=== PATIENT | female | born 1975 | race Caucasian/White ===

== ENCOUNTER 2024-12-22 13:55 | Outpatient (CLI) | payer OTHER, SELFPAY ==
--- NOTE | ~2024-12-22 | NM_ITS ---
EXAMINATION: NM thyroid scan w uptake DATE: 12/23/2024 14:47 INDICATION: Hyperthyroidism COMPARISON: None. TECHNIQUE: 355 microcuries [id number] was administered orally in capsule form. Scintigraphic images of the thyroid gland were obtained at 24 hours. Thyroid uptake was calculated by the technologist. FINDINGS: The thyroid uptake is 26.8% (normal 10-30%), with the right lobe measuring 13.8% uptake and the left 12.7%. There is no focal area of decreased or increased activity to suggest hypofunctioning or hyperfunctioning nodule. IMPRESSION: 1. Normal thyroid scintigraphy and 24-hour iodine uptake. Reviewed, dictated and finalized at location A.
--- OUTSIDE RECORDS SUMMARY | 2024-12-22 18:02 | XMS_ITS | Encounter Summary ---
Author Organization [facility] Address [address] [place] [id number] Care Team Providers Care Grain Unloader Machine Name Role Phone Anneliese Villa Primary Care Provider [phone] Georgette Garrido [facility] Primary Care Provider + Encounter Details Date Type Department Care Team (Late st Contact Info) Description 12/25/2022 [email or web address] Message [facility] Family [facility] Internal Medicine [address] [phone] [facility], [facility] Provider Screening Social History Tobacco Use Types Packs/Day Years Used Date Smoking Tobacco: Never Smokeless Tobacco: Never Alcohol Use Standard Drinks/Week Comments Yes 0 (1 standard drink = 0.6 oz pur e alcohol) 2 x a year PHQ-2 Answer Date Recorded PHQ-2 Score - If the patient scores above 3, please move on to questions 3-9 0 11/22/2019 Comments No Sex and Gender Information Value Date Recorded Sex Assigned at Female 12/02/2024 6:47 AM CDT Legal Sex Female 8:28 AM CDT Gender Identity Not on file Sexual Orientation Not on file 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 Not on file Not on file Not on file documented as of this encounter Plan of Treatment Not on file documented as of this encounter Visit Diagnoses Not on filedocumented in this encounter Additional Health Concerns Assessment Noted Time PHQ-9 Depression Total Score: 2 11/22/19 20 8:36 AM CDT documented as of this encounter Care Teams Grain Unloader Machine Relationship Specialty Start Date End Date Anneliese Villa APNP [address] [place] [id number] PCP - General NURSE PRACTITIONER 11/22/19 02/13/23 Georgette Garrido, [employer]- [address] [phone] PCP - General NURSE PRACTITIONER 02/14/23 documented as of this encounter
--- OUTSIDE RECORDS SUMMARY | 2024-12-22 18:02 | XMS_ITS | Data Portability ---
Author Organization [facility] [employer], Main Office Address [address] [place] [address] Assessment No assessment recorded. Plan of Treatment Reminders Order Date Submit Date Provider Last Modified By Organization Details Last Modified Time Details Appointments None recorded. Lab lipid panel, serum [address] (Lab), [address] [place], [address], 3 08:07:55 TSH, serum or plasma [address] (Lab), [address] [place], [address], 3 08:07:54 CBC w/ auto diff [address] (Lab), [address] [place], [address], 3 08:07:54 noninvasive colorectal cancer DNA + occult blood screening, QL, stool 2022 023 [place] [address] [employer], [address], [place], [address], 3 08:07:55 CMP, serum or plasma [address] (Lab), [address] [place], [address], 3 08:07:54 glycohemogl obin, total, blood 2022 023 [facility] (Lab), [address] [place], [address], 08:07:54 Referral None recorded. Procedures None recorded. Surgeries None recorded. Imaging None recorded. Medication Orders sertraline 50 mg tablet 2022 [place] [facility], [address], [place], [address], 08:28:19 sertraline 50 mg tablet 2022 [facility], [address] [facility], [place], [address], 08:42:32 Patient TargetsNo targets recorded. Patient Instructions Encounter Date Encounter Id Patient Instructions Last Modified By Organization Details Last Modified Time 12/31/2022 [id number] fu in 1 year for wellness. Fu in 6 weeks for med check Not available 12/31/2022 08:42:45 02/14/2023 [id number] Fu in 3 mo. 02/14/23 pt aware of [place] departure. Not available 02/14/2023 08:36:29 Reason for Referral None Reported. Results Created Date Observation Date Name Description Value Unit Range Abnormal Flag Note LastModifiedBy Organization Detail LastModifiedTime 12/31/1912/31/2023 COLOG UARD cologuard result Cancel led - Order d not applic able Not Available [employer] [address], [place], [address], 12/31/2023 07:58:45 01/30/2001/29/2023 COLOG UARD cologuard result reportable No Result Obtain ed n/a There was insuf ficie nt stool DNA detec mei to produ ce a valid Colog uard resul t. The patie nt will be conta cted to initi ate a new sampl e colle ction . Not Available [employer] [address], [place], [address], 02/09/2023 21:22:56 02/11/2002/12/2023 LIPID PANEL , STAND AMARILIS cholesterol, total 131 mg/dL <200 normal Not Available [facility] [address] [address] [place], [address], 02/12/2023 12:17:58 02/11/2002/12/2023 LIPID PANEL , STAND AMARILIS HDL cholesterol 48 mg/dL > or = 50 low Not Available [facility] [address] [address] [place], [address], 02/12/2023 12:17:58 02/11/2002/12/2023 LIPID PANEL , STAND AMARILIS triglyceride s 54 mg/dL <150 normal Not Available [facility] [address] [address] [place], [address], 02/12/2023 12:17:58 02/11/2002/12/2023 LIPID PANEL , STAND AMARILIS LDL-choleste rol 70 mg/dL _(naeem c) normal Refer ence range : <100 Grady able range <100 mg/dL for prima ry preve ntion ; <70 mg/dL for patie nts with CHD or diabe tic patie nts with > or = 2 CHD risk facto rs. LDL-C is now calcu lated using the Chuyita n-Hop kins sadieu tito n, which is a valid ated novel camille grubbs accur acy than the Fried darlene equat ion in the estim ation of LDL-C . Chuyita bautista SS et al. CARLOS A. 2013; 310(1 9): 2061- 2068 (http ://ed ucati on.Qu Lexi gonsalezBlisMedias. com/f aq/FA Q164) Not Available [facility] [address] [address] [place], [address], 02/12/2023 12:17:58 02/11/20 23 02/12/2023 LIPID PANEL , STAND AMARILIS chol/HDLC ratio 2.7 (calc ) <5.0 normal Not Available [facility] [address] [address] [place], [address], 02/12/2023 12:17:58 02/11/2002/12/2023 LIPID PANEL , STAND AMARILIS non HDL cholesterol 83 mg/dL _(naeem c) <130 normal For patie nts with diabe jose plus 1 major ASCVD risk facto r, treat ing to a non-H DL-C goal of <100 mg/dL (LDL- C of <70 mg/dL ) is consi dered a thera peuti c optio n. Not Available [address] [place], [address], 02/12/2023 12:17:58 02/11/2002/12/2023 COMPR EHENS PATRICK METAB OLIC PANEL glucose 93 mg/dL 65-99 normal Fasti ng refer ence inter lu Not Available [address] [address] [place], [address], 02/12/2023 12:18:00 02/11/2002/12/2023 COMPR EHENS PATRICK METAB OLIC PANEL urea nitrogen (BUN) 13 mg/dL 7-25 normal Not Available [address] [place], [address], 02/12/2023 12:18:00 02/11/2002/12/2023 COMPR EHENS PATRICK METAB OLIC PANEL creatinine 0.58 mg/dL 0.50-0 .99 normal Not Available [facility] [address] [address] [place], [address], 02/12/2023 12:18:00 02/11/2002/12/2023 COMPR EHENS PATRICK METAB OLIC PANEL eGFR 111 mL/mi n/1.7 3m2 > or = 60 normal Not Available [facility] [address] [address] [place], [address], 02/12/2023 12:18:00 02/11/20 23 02/12/2023 COMPR EHENS PATRICK METAB OLIC PANEL BUN/creatini ne ratio SEE NOTE: (calc ) 6-22 Not Repor mei: BUN and Creat inine are withi n refer ence range . Not Available [address], [address], 02/12/2023 12:18:00 02/11/20 23 02/12/2023 COMPR EHENS PATRICK METAB OLIC PANEL sodium 137 mmol/ L 135-14 6 normal Not Available [address], [address], 02/12/2023 12:18:00 02/11/2002/12/2023 COMPR EHENS PATRICK METAB OLIC PANEL potassium 4.0 mmol/ L 3.5-5. 3 normal Not Available [address], [address], 02/12/2023 12:18:00 02/11/20 23 02/12/2023 COMPR EHENS PATRICK METAB OLIC PANEL chloride 101 mmol/ L 98-110 normal Not Available [address], [address], 02/12/2023 12:18:00 02/11/20 23 02/12/2023 COMPR EHENS PATRICK METAB OLIC PANEL carbon dioxide 27 mmol/ L 20-32 normal Not Available [address], [address], 02/12/2023 12:18:00 02/11/20 23 02/12/2023 COMPR EHENS PATRICK METAB OLIC PANEL calcium 9.5 mg/dL 8.6-10 .2 normal Not Available [address], [address], 02/12/2023 12:18:00 02/11/20 23 02/12/2023 COMPR EHENS PATRICK METAB OLIC PANEL protein, total 7.3 g/dL 6.1-8. 1 normal Not Available [address], [address], 02/12/2023 12:18:00 02/11/20 23 02/12/2023 COMPR EHENS PATRICK METAB OLIC PANEL albumin 4.0 g/dL 3.6-5. 1 normal Not Available [address], [address], 02/12/2023 12:18:00 02/11/20 23 02/12/2023 COMPR EHENS PATRICK METAB OLIC PANEL globulin 3.3 g/dL_ (calc ) 1.9-3. 7 normal Not Available [address], [address], 02/12/2023 12:18:00 02/11/20 23 02/12/2023 COMPR EHENS PATRICK METAB OLIC PANEL albumin/glob ulin ratio 1.2 (calc ) 1.0-2. 5 normal Not Available [address], [address], 02/12/2023 12:18:00 02/11/20 23 02/12/2023 COMPR EHENS PATRICK METAB OLIC PANEL bilirubin, total 0.4 mg/dL 0.2-1. 2 normal Not Available [address], [address], 02/12/2023 12:18:00 02/11/20 23 02/12/2023 COMPR EHENS PATRICK METAB OLIC PANEL alkaline phosphatase 134 U/L 31-125 high Not Available [facility] [employer] [address], [address], 02/12/2023 12:18:00 02/11/20 23 02/12/2023 COMPR EHENS PATRICK METAB OLIC PANEL AST 25 U/L 10-35 normal Not Available [address], [address], 02/12/2023 12:18:00 02/11/20 23 02/12/2023 COMPR EHENS PATRICK METAB OLIC PANEL ALT 23 U/L 6-29 normal Not Available [address], [address], 02/12/2023 12:18:00 02/11/2002/12/2023 CBC (INCL UDES DIFF/ PLT) white blood cell count 8.7 thous and/u L 3.8-10 .8 normal Not Available [address], [address], 02/12/2023 12:18:02 02/11/2002/12/2023 CBC (INCL UDES DIFF/ PLT) red blood cell count 4.16 christophe on/uL 3.80-5 .10 normal Not Available [address], [address], 02/12/2023 12:18:02 02/11/2002/12/2023 CBC (INCL UDES DIFF/ PLT) hemoglobin 12.1 g/dL 11.7-1 5.5 normal Not Available [address], [address], 02/12/2023 12:18:02 02/11/2002/12/2023 CBC (INCL UDES DIFF/ PLT) hematocrit 36.6 % 35.0-4 5.0 normal Not Available [address], [address], 02/12/2023 12:18:02 02/11/2002/12/2023 CBC (INCL UDES DIFF/ PLT) MCV 88.0 fL 80.0-1 00.0 normal Not Available [address], [address], 02/12/2023 12:18:02 02/11/20 23 02/12/2023 CBC (INCL UDES DIFF/ PLT) MCH 29.1 pg 27.0-3 3.0 normal Not Available [address], [address], 02/12/2023 12:18:02 02/11/2002/12/2023 CBC (INCL UDES DIFF/ PLT) MCHC 33.1 g/dL 32.0-3 6.0 normal Not Available [address], [address], 02/12/2023 12:18:02 02/11/2002/12/2023 CBC (INCL UDES DIFF/ PLT) RDW 11.2 % 11.0-1 5.0 normal Not Available [address], [address], 02/12/2023 12:18:02 02/11/2002/12/2023 CBC (INCL UDES DIFF/ PLT) platelet count 379 thous and/u L 140-40 0 normal Not Available [address], [address], 02/12/2023 12:18:02 02/11/2002/12/2023 CBC (INCL UDES DIFF/ PLT) MPV 10.2 fL 7.5-12 .5 normal Not Available [address], [address], 02/12/2023 12:18:02 02/11/2002/12/2023 CBC (INCL UDES DIFF/ PLT) absolute neutrophils 5403 cells /uL 1500-7 800 normal Not Available [address], [address], 02/12/2023 12:18:02 02/11/2002/12/2023 CBC (INCL UDES DIFF/ PLT) absolute lymphocytes 2332 cells /uL 850-39 00 normal Not Available [facility] [address], [address], 02/12/2023 12:18:02 02/11/2002/12/2023 CBC (INCL UDES DIFF/ PLT) absolute monocytes 731 cells /uL 200-95 0 normal Not Available [address], [address], 02/12/2023 12:18:02 02/11/2002/12/2023 CBC (INCL UDES DIFF/ PLT) absolute eosinophils 191 cells /uL 15-500 normal Not Available [address], [address], 02/12/2023 12:18:02 02/11/2002/12/2023 CBC (INCL UDES DIFF/ PLT) absolute basophils 44 cells /uL 0-200 normal Not Available [address], [address], 02/12/2023 12:18:02 02/11/2002/12/2023 CBC (INCL UDES DIFF/ PLT) neutrophils 62.1 % normal Not Available [address], [address], 02/12/2023 12:18:02 02/11/2002/12/2023 CBC (INCL UDES DIFF/ PLT) lymphocytes 26.8 % normal Not Available [address], [address], 02/12/2023 12:18:02 02/11/2002/12/2023 CBC (INCL UDES DIFF/ PLT) monocytes 8.4 % normal Not Available [address], [address], 02/12/2023 12:18:02 02/11/2002/12/2023 CBC (INCL UDES DIFF/ PLT) eosinophils 2.2 % normal Not Available [address] [place], [address], 02/12/2023 12:18:02 02/11/20 23 02/12/2023 CBC (INCL UDES DIFF/ PLT) basophils 0.5 % normal Not Available [address], [address], 02/12/2023 12:18:02 02/11/2002/12/2023 TSH W/REF DWAYNE TO FT4 TSH w/reflex to FT4 0.01 mIU/L low Refer ence Range > or = 20 Years 0.40- 4.50 Pregn beverley Range s First trime ster 0.26- 2.66 Secon d trime ster 0.55- 2.73 Third trime ster 0.43- 2.91 Not Available [address], [address], 02/12/2023 12:18:03 02/11/2002/12/2023 T4, FREE T4, free 1.5 NG/dL 0.8-1. 8 normal Not Available [address], [address], 02/12/2023 12:18:05 02/11/2002/12/2023 HEMOG LOBIN A1C hemoglobin A1C 5.2 %_of_ total _HGB <5.7 normal For the purpo se of reina altamirano for the prese nce of diabe jose: <5.7% Consi stent with the absen ce of diabe jose 5.7-6 .4% Consi stent with incre ased risk for diabe jose (pred iabet es) > or =6.5% Consi stent with diabe jose This assay resul t is consi stent with a decre ased risk of diabe jose. Curre ntly, no conse nsus exist s jacinta lund use of hemog lobin A1c for diagn osis of diabe jose in child zandra. Accor ding to Ameri can Diabe jose Assoc iatio n (ADA) guide lines , hemog lobin A1c <7.0% repre sents optim al contr ol in non-p regna nt diabe tic patie nts. Diffe rent ri cs may apply to speci fic patie nt popul ation s. Stand ards of Medic al Care in Diabe jose(A DA). Not Available [facility] [address] [address], [place], [address], 02/12/2023 12:18:05 04/03/19 24 04/02/2023 NM, thyro id scan, w/ uptak e No observ ation record ed. [email or web address] [facility], [place], [address], 04/06/2023 08:19:13 Result Notes None recorded. Problems Name Problem SNOMED Code Status Onset Date Resolution Date Notes Provider Name and Address Organization Details Recorded Time Impacted cerumen in right ear 6745533696649 103 Active 2022 Georgette Garrido NP [address], [place], [address], [employer] 3 08:33:07 Anxiety 66796850 Active 2022 Georgette Garrido NP [address], [place], [address], [employer] 3 08:34:10 Thyroid stimulating hormone level below reference range 960971300 Active 2022 Georgette Garrido NP [address], [place], [address], [employer] 3 15:35:22 Subclinical hyperthyroi dism 138100588 Active 2022 Georgette Garrido NP [address], [address], [place], [address], [employer] 3 08:18:53 Problem Notes None recorded. Procedures Surgical History Date Name Laterality Status Provider Name and Address Organization Details Recorded Time 3 Cerumen Removal completed Georgette Garrido NP [address] [address], [place], [address], [facility] [employer] [facility] 12/31/2022 08:36:57 3 Most Recent Mammogram completed Georgette Quiroga RN [facility] [employer] [facility] 12/31/2022 08:11:39 1 Date of Last Pap Smear completed Georgette Quiroga RN [facility] [employer] [facility] 02/14/2023 08:04:50 Imaging Results None recorded. Procedure Notes None recorded. Medical Equipment None Reported. Allergies No known drug allergies Medications Name Sig Start Date Stop Date Status Note LastModified by Organization Details LastModified Time sertraline 50 mg tablet Take 1 tablet every day by oral route. active Not Available Not Available No t Available metoprolol tartrate 25 mg tablet TAKE 1 TABLET (25 MG TOTAL) BY MOUTH DAILY. active Not Available Not Available No t Available Vitals Date Recorded Heart rate Provider Name an d Address Organization Details Last Updated DateTime 12/31/2022 90 /min Georgette Garrido NP [address] [facility] [address], [place], [address], [facility] [employer] [facility] 12/31/2022 08:25:37 Date Recorded Body weight Body mass index (BMI) Body height Body temperature Heart rate Respiratory rate Oxygen saturation Oxygen saturation in Arterial blood by Pulse oximetry Pain severity - 0-10 verbal numeric rating [Score] - Reported Systolic And Diastolic Provider Name and Address Organization Details Last Updated DateTime 3 [address].1 8 g 29.7 kg/m2 162.56 cm 96.3 [degF] 112 /min 16 /min 99 % 99 % 0 140/80 mm[Hg] Georgette Quiroga RN [facility] [employer] [facility] 3 08:08:03 Date Recorded Body height Body mass index (BMI) Body weight Body temperature Heart rate Respiratory rate Oxygen saturation Oxygen saturation in Arterial blood by Pulse oximetry Pain severity - 0-10 verbal numeric rating [Score] - Reported Systolic And Diastolic Provider Name and Address Organization Details Last Updated DateTime 3 162.56 cm 28.5 kg/m2 407[address].3 3 g 96.9 [degF] 92 /min 20 /min 99 % 99 % 0 152/90 mm[Hg] Georgette Quiroga RN [facility] [employer] [facility] 08:03:56 Social History Question Answer Notes LastModified by Organization Details LastModified Time Tobacco Smoking Status Former Smoker Miranda Stuartcaritoamado mars [facility] [employer] [facility] 02/14/2023 07:56:42 Do You Have An Advance Directive? No Information not available 12/31/2022 Is Blood Transfusion Acceptable In An Emergency? Yes Information not available 02/14/2023 What Is Your Level Of Caffeine Consumption? Moderate Diet Coke Information not available 12/31/2022 What Is Your Code Status? Full Code Information not available 02/14/2023 In The 14 Days Before Symptom Onset, Have You Had Close Contact With A Laboratory-conf irmed COVID-19 While That Case Was Ill? No Information not available 02/14/2023 In The 14 Days Before Symptom Onset, Have You Had Close Contact With A Person Who Is Under Investigation For COVID-19 While That Person Was Ill? No Information not available 02/14/2023 What Type Of Diet Are You Following? REGULAR Information not available 12/31/2022 How Many Days Of Moderate To Strenuous Exercise, Like A Brisk Walk, Did You Do In The Last 7 Days? 7 Information not available 02/14/2023 On Those Days That You Engage In Moderate To Strenuous Exercise, How Many Minutes, On Average, Do You Exercise? 60 Information not available 02/14/2023 Have There Been Any Changes To Your Family Or Social Situation? Yes Son Is In Information not available 02/14/2023 Are There Any Guns Present In Your Home? No Information not available 02/14/2023 Do You Use Insect Repellent Routinely? Yes Information not available 02/14/2023 Where Do You Live? SingleLevelHouse Information not available 02/14/2023 Do You Have A Medical Power Of Pawn Broker? No Information not available 02/14/2023 How Many Children Do You Have? 3 Information not available 02/14/2023 Do You Have Any Pets? No Information not available 02/14/2023 What Is Your Relationship Status? Information not available 12/31/2022 Do You Use Your Seat Belt Or Car Seat Routinely? Yes Information not available 02/14/2023 Do You Have Smoke And Carbon Monoxide Detectors In Your Home? Yes Information not available 02/14/2023 Are There Any Smokers In Your House? No Information not available 02/14/2023 Do You Participate In Social Media? Yes Information not available 02/14/2023 What Types Of Sporting Activities Do You Participate In? Walk, Roller Skate Information not available 02/14/2023 Do You Use Sunscreen Routinely? Yes Information not available 02/14/2023 Have You Recently Traveled Abroad? No Information not available 02/14/2023 Sex: Unknown Functional Status Question Answer Note LastModified by Organization D etails LastModified Time What is your level of alcohol consumption? None Information not available 12/31/2022 Are you currently employed? 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 Moderate Information not available 12/31/2022 Mental Status Question Answer Note LastModified by Organization D etails LastModified Time Do you feel stressed (tense, restless, nervous, or anxious, or unable to sleep at night)? [id number] Information not available 02/14/2023 Family History Relationship Description Onset Age of this Age Resolved Age Notes LastModified by Organization Details LastModified Time Father Essential hypertension [email or web address] Not available 08:28:26 Father Carcinoma of prostate [email or web address] Not available 2022 08:28:37 Paternal Grandmother Alzheimer's disease [email or web address] Not available 2022 08:28:47 Medical History Condition Response DEPRESSION (INCLUDING POST ) Y HYPERTENSION Y Gynecological History Statement/Question Response Date of Last Colonoscopy Date of LMP 10/06/2022 Frequency of Cycle (Q days) Most Recent Bone Density Date of Last Pap Smear 05/01/2020 Most Recent Mammogram 11/01/2022 Obstetrics History GPAL:G 0 P 0 0 0 0 Immunizations Vaccine Type Date Status Note Provider José schmidt and Address Organization Details Recorded Time influenza, unspecified formulation 01/13/2023 completed Georgette Garrido NP [address] [facility] [facility] [address], [place], [address], [facility] [employer] 02/14/2023 08:30:36 Past Encounters Encounter ID Performer Location Encounter Start Date Encounter Closed Date Diagnosis/Indication Diagnosis SNOMED-CT Code Diagnosis ICD10 Code Diagnosis IMO Codes Diagnosis Note [id number] Georgette Garrido NP [address] [address] 12/31/2022 08:01:22 12/31/2022 08:47:43 Anemia screening 765345272 Z13.0 Diabetes m ellitus screening 568110142 Z13.1 Thyroid di sorder screening 346898920 Z13.29 Hyperlipid emia screening 137658301 Z13.220 Screening for malignant neoplasm of colon 235144059 Z12.11 Cologuard ordered 12/31/22 Impacted c erumen in right ear 6155734608 075672 H61.21 Irrigation 12/31/22, right ear Anxiety 81368891 F41.9 Can't turn off worry- will start on sertraline 50 mg po daily. Take 1/2 tab po daily for 1-2 week then to 50 mg tab. Adult heal th examination 044316746 Z00.01 Encouraged well balanced meals, active lifestyle, and routine vision and dental appts.Pt to check tdap status with her employer [employer]. [id number] Georgette Garrido NP [address] [address] 02/14/2023 07:54:26 02/14/2023 08:59:20 Subclinical hyperthyroidism 759695286 E05.90 Pt to follow up with cyndy. Has referral to [employer] in hand 02/14/23. Anxiety 42391221 F41.9 Sertraline 50 mg po daily. Health Concerns Section Related Observation LastModified by Organization Detai ls LastModified Time None Recorded Concern Status LastModified by Organization Details LastModified Time None Recorded Advance Directives Directive N: Payers Insurance Date Sequence Insurance Name Policy Number Policy Deluna Covered Member ID Deluna Member ID Guarantor Name 02/17/2023 1 [employer] [id number] Audrey Lawrence [id number] 2 [id number] Audrey Lawrence Notes Date Note Type Note Provider Name and Address Organization Details Recorded Time 12/31/2022 text/html Here for new patient appt. REGISTERED NURSE CARDIOVASCULAR ICU- Was seeing previous pcp for paps. Was on Continuous bcp for years. Stopped in August 2022. Had period in Oct 06, 2022, but nothing since. States she had continuous bcp to avoid periods. Anxiety- was on zoloft after having last child. Was on it for few years and weaned self off. Transition of jobs recently. Son joined the [employer], working the boarder in [place]. Constant worry. No SI/HI. and stable finances. Tdap- pt started working for [employer] in 2020. Not sure dates. Obese- weight is generally low 150s. Not much gained since stopping BCP. Last labs- 2021. states all normal in 2021. Georgette Garrido NP [address], [place], [address], [employer] 12/31/2022 08:44:03 02/14/2023 text/html Here for follow up on thyroid. Had recent labs and TSH was low.2020 TSh was 2.39 Anxiety- zoloft is working. Not tearful as much. Has responded to information regarding thyroid well and looked up information but not plan my so to speak. Weight- has been trying to lose weight. Down 7 lbs. Ear pressure- started on flonase. helping. Georgette Garrido NP [address], [place], [address], [employer] 02/14/2023 08:38:35 OBGyn Episode No OBEpisode recorded.
--- OUTSIDE RECORDS SUMMARY | 2024-12-22 18:02 | XMS_ITS | Clinical Summary ---
Author Organization [facility] Care Team Providers Care Manual Control Auger Press Operator Name Role Phone Unavailable Primary Care Provider Unavailabl e Social History Tobacco Use Types Packs/Day Years Used Date Smoking Tobacco: Never Assessed Comments Unknown Sex and Gender Information Value Date Recorded Sex Assigned at Not on file Legal Sex Female 2:49 PM SPINNER HAND Gender Identity Not on file Sexual Orientation Not on file Plan of Treatment Health Maintenance Due Date Last Done Comments Hepatitis C Virus (HCV) Screening 1973 Hepatitis B Immunization (1 of 3 - 19+ 3-dose series) 1992 Pap Smear 1994 Cervical Cancer Screening (CCS) 05/21/2003 HPV/Cotest 05/21/2003 Cologuard 2018 Colonoscopy 2018 Colorectal Cancer Screening 2018 Immunochemical Fecal Occult Blood 2018 Pneumococcal Immunization (5 0+ years) (1 of 1 - PCV) 05/21/2023 Zoster Immunization (1 of 2) 05/21/2023 Influenza Immunization (#1) 2024 11/22/2019 SARS-COV-2 Immunization (3 - season) 2024 02/09/2021, 05/07/2020 Respiratory Syncytial Virus (RSV) Immunization (Adult) (1 - 1-dose 75+ series) 2048 DTaP/Tdap/Td Immunization Discontinued 11/22/2019 TdaP Immunization Completed 11/22/2019 Human Papillomavirus (HPV) Immunization Aged Out No longer eligible based on patient's age to complete this topic Meningococcal Immunization (ACWY) Aged Out No longer eligible based on patient's age to complete this topic Rotavirus Immunization Aged Out No lo nger eligible based on patient's age to complete this topic
--- OUTSIDE RECORDS SUMMARY | 2024-12-22 18:02 | XMS_ITS | Encounter Summary ---
Author Organization [facility] Address [address] [place] [id number] Care Team Providers Care Jitterbug Operator Name Role Phone Georgette Garrido Ree [facility] Primary Care Provider + Encounter Details Date Type Department Care Team (Late st Contact Info) Description 04/14/2023 Abstract [facility] [address] Mehnaz Perales MA Social History Tobacco Use Types Packs/Day Years Used Date Smoking Tobacco: Never Smokeless Tobacco: Never Alcohol Use Standard Drinks/Week Comments Not Currently 0 (1 standard drink = 0.6 oz pur e alcohol) PHQ-2 Answer Date Recorded PHQ-2 Score - If the patient scores above 3, please move on to questions 3-9 0 11/22/2019 Comments No Sex and Gender Information Value Date Recorded Sex Assigned at Female 12/02/2024 6:47 AM CDT Legal Sex Female 8:28 AM CDT Gender Identity Not on file Sexual Orientation Not on file 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 file Not on file Not on file documented as of this encounter Plan of Treatment Not on file documented as of this encounter Procedures Procedure Name Priority Date/Time Associated Diagnosis Comments COMPREHENSIVE METABOLIC PANEL Routine 04/12/2023 documented in this encounter Results * COMPREHENSIVE METABOLIC PANEL (04/12/2023) SODIUM S/P/B 139 GLUCOSE 76 mg/dL BUN 12 CREATININE S/P/B 0.72 0.5 - 1.0 CALCIUM S/P/B 9.0 POTASSIUM S/P/B 4.0 CHLORIDE S/P/B 104 GFR ESTIMATE 102 04/12/2023 us Default History Genericprovider LABORATORY Edited Result - Final documented in this encounter Visit Diagnoses Not on filedocumented in this encounter Additional Health Concerns Assessment Noted Time PHQ-9 Depression Total Score: 2 11/22/19 20 8:36 AM CDT documented as of this encounter Care Teams Jitterbug Operator Relationship Specialty Start Date End Date Georgette Garrido, AIRCRAFT MAINTENANCE MANAGER- [address] [phone] PCP - General NURSE PRACTITIONER 02/14/23 documented as of this encounter
--- OUTSIDE RECORDS SUMMARY | 2024-12-22 18:02 | XMS_ITS | Clinical Summary ---
Author Organization [facility] Address [facility] [place] [address] Care Team Providers Care Wireworker Supervisor Name Role Phone Georgette Garrido [facility] Primary Care Provider + Allergies No known active allergies Medications Levonorgest-Eth Estrad 91-Day 0.1-0.02 & 0.01 MG Tab 4 Active levothyroxine (SYNTHROID) 25 MCG tabletIndications:A cquired hypothyroidism Take 1 tablet (25 mcg total) by mouth every morning. 90 tablet 3 4 Active Active Problems Problem Noted Date Diagnosed Date MVP (mitral valve prolapse) 03/20/2023 Decreased thyroid stimulating hormone (TSH) leve l 02/11/2023 Resolved Problems Problem Noted Date Diagnosed Date Resolved Date Sinus tachycardia 03/20/2023 12/19/2023 Encounters Date Type Department Care Team Description 12/02/2024 6:49 AM CDT - 12/02/2024 11:59 PM T Hospital Encounter [facility] Ultrasound [address] [address] Ayan Mccarthy MD Discharge Disposition: Home or Self Care (Routine Discharge) 12/02/2024 Travel from Last 3 Months Immunizations Immunization Administration Dates Next Due Fluzone 6 Months+ Quad (0.5 mL Prefilled Syringe ) 11/22/2019 Influenza (Generic) 01/13/2023 Influenza Adult (Generic) 12/09/2022 Tdap (Adacel) 11/22/2019 Family History Medical History Relation Comments Cancer Father prostate No Known Problems Mother Heart Attack Paternal Grandfather Heart Disease Paternal Grandfather Diabetes Paternal Grandmother Mental Health Paternal Grandmother Relation Status Comments Father Alive Maternal Grandfather Maternal Grandmother Alive Mother Alive Paternal Grandfather (Age 65) Paternal Grandmother Sister Alive Social History Tobacco Use Types Packs/Day Years Used Date Smoking Tobacco: Never Smokeless Tobacco: Never Tobacco Cessation:Counseling Given: No Alcohol Use Standard Drinks/Week Comments Not Currently [...] 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 file Not on file Not on file Last Filed Vital Signs Vital Sign Reading Time Taken Comments Blood Pressure 124/80 12/19/2023 1:14 PM CDT done at primary office Pulse 105 09/24/2023 9:53 AM CDT Temperature 36.8 C (98.3 F) 02/16/2023 1:32 PM UX UI DESIGNER Respiratory Rate 24 02/16/2023 3:45 PM UX UI DESIGNER Oxygen Saturation 98% 09/24/2023 9:5 3 AM CDT Inhaled Oxygen Concentration - - Weight 75.3 kg (166 lb) 12/19/2023 1:14 PM CDT Height 162.6 cm (5' 4) 12/19/2023 1:14 PM CDT Body Mass Index 28.49 12/19/2023 1:14 PM CDT Plan of Treatment Health Maintenance Due Date Last Done Comments Colorectal Cancer Screening Colonoscopy (10 Years) 1973 Hepatitis C 05/21/1991 Hepatitis B Vaccines (1 of 3 - 19+ 3-dose series) 1992 Pneumococcal Vaccine: 50+ Years (1 of 2 - PCV) 1992 Cervical Cancer Screening Pap with HPV Testing (Age 30 to 64) Every 5 Years 05/21/2003 Annual Physical 11/21/2020 11/22/2019 Cervical Cancer Screening Pap Smear (Age 30 to 64) Every 3 Years 05/06/2023 05/05/2020 Cervical Cancer Screening with HPV 05/06/2023 Zoster Vaccines (1 of 2) 05/21/2023 PHQ-2 (Physician [place]) 03/03/2024 COVID-19 Vaccine (2 - season) 2024 05/07/2020 Mammogram Screening 11/26/2024 11/26/2022, 0 Influenza Adult (#1) 2024 12/02/2023, 01/13/2023, 12/09/2022, Additional history exists DTaP, Tdap and Td Vaccines (2 - Td or Tdap) 11/21/2029 11/22/2019 Hepatitis A Vaccines Aged Out No long er eligible based on patient's age to complete this topic Meningococcal B Vaccine Aged Out No l onger eligible based on patient's age to complete this topic Meningococcal Vaccine Aged Out No chanel christy eligible based on patient's age to complete this topic RSV Immunizations Under 20 Months Aged Out No longer eligible based on patient's age to complete this topic Procedures Procedure Name Priority Date/Time Associated Diagnosis Comments US THYROID Routine 12/02/2024 7:14 AM CDT Other specified abnormal findings of blood chemistry Thyrotoxicosis, unspecified without thyrotoxic crisis or storm Nontoxic goiter, unspecified MAMMOGRAM GENERIC (SCAN ORDER) 11/26/2022 CYTOPATH CERV/VAG THIN LAYER Routine 05/05/2020 12:18 PM UX UI DESIGNER from Last 3 Months or Most Recently Relevant to Health Maintenance Results * US THYROID (12/02/2024 7:14 AM CDT) Anatomical Region Laterality Modality Neck Ultrasound 12/02/2024 3:47 PM CDT Impressions 12/02/2024 3:49 PM CDT IMPRESSION: 1. Normal-sized thyroid gland without evidence of thyroiditis. 2. Small bilateral thyroid nodules not meeting criteria for FNA or surveillance. ACR TI-RADS recommendations: TR5: Highly Suspicious (greater than or equal to 7 points) - FNA if greater than or equal to 1 cm, follow-up if 0.5-0.9 cm every year for 5 years TR4: Moderately Suspicious (4-6 points) - FNA if greater than or equal to 1.5cm, follow-up if 1-1.4 cm in 1, 2, 3 and 5 years TR3: Mildly Suspicious (3 points) - FNA if greater than or equal to 2.5cm, follow-up if 1.5-2.4 cm in 1, 3 and 5 years TR2: Not Suspicious (2 points) TR1: Benign (0 points) - No FNA or follow-up * ACR TI-RADS recommends no more than two nodules with the highest ACR TI-RADS total point should be biopsied and no more than four nodules should be followed. ACR TI-RADS (Thyroid Imaging and Reporting Data System) is a structured system for interpreting and reporting thyroid imaging studies with management guidelines. https://www.acr.org/Clinical-Resources/Amnxrxmkl-ynu-Stpf-Systems/TI-RADS Referred By: AYAN MCCARTHY Interpreted By: Navi Leal MD, 12/02/2024 3:47 PM Narrative 12/02/2024 3:49 PM [address]T [address] [address] EXAMINATION: Thyroid ultrasound HISTORY: No history provided DATE/TIME: 12/02/2024 6:55 AM COMPARISON: None TECHNIQUE: Sonographic evaluation of the thyroid gland. FINDINGS: The thyroid gland is normal size, with normal background parenchymal echogenicity and vascularity. The right lobe measures 3.7 x 1.3 (AP) x 1.2cm, the left lobe measures 3.0 x 0.8(AP) x 3cm and the isthmus measures 2mm in thickness. Right lobe nodules: 1. Hypoechoic solid nodule measuring 0.3 x 0.2 x 0.3 cm TR category 3. Left lobe nodules: 1. Hypoechoic solid nodule measuring 0.2 x 0.2 x 0.2 cm. TR category 3. Isthmus nodules: 1. Hypoechoic nodule measuring 0.3 x 0.3 x 0.1 cm, equivocally solid versus cystic. Presuming solid character, TR category category 4. Procedure Note Navi Leal MD - 12/02/[address] [address] EXAMINATION: Thyroid ultrasound HISTORY: No history provided DATE/TIME: 12/02/2024 6:55 AM COMPARISON: None TECHNIQUE: Sonographic evaluation of the thyroid gland. FINDINGS: The thyroid gland is normal size, with normal backgroundparenchymal echogenicity and vascularity. The right lobe measures 3.7 x1.3 (AP) x 1.2cm, the left lobe measures 3.0 x 0.8(AP) x 3cm and theisthmus measures 2mm in thickness. Right lobe nodules: 1. Hypoechoic solid nodule measuring 0.3 x 0.2 x 0.3 cm TR category 3. Left lobe nodules: 1. Hypoechoic solid nodule measuring 0.2 x 0.2 x 0.2 cm. TR category 3. Isthmus nodules: 1. Hypoechoic nodule measuring 0.3 x 0.3 x 0.1 cm, equivocally solidversus cystic. Presuming solid character, TR category category 4. IMPRESSION: 1. Normal-sized thyroid gland without evidence of thyroiditis. 2. Small bilateral thyroid nodules not meeting criteria for FNA orsurveillance. ACR TI-RADS recommendations: TR5: Highly Suspicious (greater than or equal to 7 points) - FNA if greater than or equal to 1 cm, follow-up if 0.5-0.9 cm every year for 5 years TR4: Moderately Suspicious (4-6 points) - FNA if greater than or equalto 1.5cm, follow-up if 1-1.4 cm in 1, 2, 3 and 5 years TR3: Mildly Suspicious (3 points) - FNA if greater than or equal to2.5cm, follow-up if 1.5-2.4 cm in 1, 3 and 5 years TR2: Not Suspicious (2 points) TR1: Benign (0 points) - No FNA or follow-up * ACR TI-RADS recommends no more than two nodules with the highest ACR TI-RADS total point should be biopsied and no more than four nodules should be followed. ACR TI-RADS (Thyroid Imaging and Reporting Data System) is a structured system for interpreting and reporting thyroid imaging studies with management guidelines. https://www.acr.org/Clinical-Resources/Hyjsebimm-kuw-Hcdw-Systems/TI-RADS Referred By: AYAN MCCARTHY Interpreted By: Navi Leal MD, 12/02/2024 3:47 PM us Ayan Mccarthy MD ULTRASOUND Final Result * MAMMOGRAM GENERIC (11/26/2022) Anatomical Region Laterality Modality Other 11/26/2022 us [facility] Scanned SCANNING Final Resu lt * Cytopath Cerv/Vag Thin Layer (05/05/2020 12:18 PM UX UI DESIGNER) THIN PREP PAP [address] [phone] Department of Pathology Pathology Report CERVICAL/VAGINAL PAP SMEAR REPORT Name: AUDREY WHALEY Age: 3 1975 (Age: 44) Location: [facility] Sex: F Collected Date: 05/05/2020 [facility] #: [id number] Date Received: 05/08/2020 Date Reported: 05/11/2020 Provider: ANAYA GRAYSON INTERPRETATION CERVICAL/ENDOCERVI APOORVA: SATISFACTORY FOR EVALUATION. ENDOCERVICAL/TRANS FORMATION ZONE COMPONENT PRESENT. NEGATIVE FOR INTRAEPITHELIAL LESION OR MALIGNANCY. NEGATIVE FOR HIGH RISK HPV. The FDA approved Aptima HPV assay is an in vitro nucleic acid amplification test for the qualitative detection of E6/E7 viral messenger RNA (mRNA) from 14 high-risk types of human papillomavirus (HPV) in cervical specimens. The high-risk HPV types detected by the assay include: 16,18,31,33,35,39, 45,51,52,56,58,59, 66, and 68. Electronically Signed Out By KASH Cox (ASCP) CLINICAL HISTORY PT HAS NOT HAD A PERIOD DUE TO CONTROL Z01.419 WELL WOMAN VISIT ThinPrep Pap Test with HR HPV testing in patient > 30 years requested. Date of Last Menstrual Period: 2017 Menstrual Status: Regular SPECIMEN SUBMITTED CERVICAL/ENDOCERVI APOORVA Specimen Received:1 Thin Prep Vial, Image Assisted Pap (SMD) Please note: The Pap smear is not a diagnostic test. It is a screening test. Negative results on combined screening (Pap test and HPV-DNA) have a high negative predictive value (99.1-100 percent) for cervical cancer. The pap test is not effective in detecting cervical adenocarcinoma. [facility] 05/05/2020 12:1 8 PM UX UI DESIGNER 05/08/2020 12:18 PM UX UI DESIGNER Comment:CERVICAL/ENDOCERVICA L Anaya GRAYSON PATHOLOGY/CYTOLOGY ORDERABL ES Final Result Performing Organization Address City/State/[facility] Co de Phone Number [facility] [address] [place] [address], [id number] [facility] [address] [place] [address], from Last 3 Months or Most Recently Relevant to Health Maintenance Insurance [facility] Care Teams Wireworker Supervisor Relationship Specialty Start Date End Date Georgette Garrido, ARRANGING FUNERAL DIRECTOR-BC [address] [place] [phone] PCP - General NURSE PRACTITIONER 02/14/23
== END 2024-12-22 13:56 | disposition home or self-care (01) ==
PROVIDERS: PCP Nurse Practitioner Family; Visit Provider Internal Medicine
DX: E05.90 Thyrotoxicosis, unspecified without thyrotoxic crisis or storm (principal); R79.89 Other specified abnormal findings of blood chemistry; E04.9 Nontoxic goiter, unspecified
CPT/HCPCS: 78014; A9516